=== PATIENT | male | born 2000 | race Hispanic/Latino ===

== ENCOUNTER 2024-02-03 15:26 | Emergency (ER) | payer OTHER ==
[~2024-02-03] VITALS: Ht 177.8 cm; Wt 65.8 kg
[2024-02-03 15:43] VITALS: PULSE 82; RESP 18; TEMP 98.2; O2SAT 97
[2024-02-03] MEDS ORDERED: DOXYCYCLINE HY100 MG PO (16:08)
== END 2024-02-03 16:15 | disposition home or self-care (01) ==
LOC: FSED 15:30
DX: L03.116 Cellulitis of left lower limb (principal); S80.862A Insect bite (nonvenomous), left lower leg, initial encounter
CPT/HCPCS: 99282